=== PATIENT | male | born 1950 | race Two or more races ===

== ENCOUNTER 2021-04-02 10:34 | Emergency (ER) | payer SELFPAY ==
[2021-04-02 10:42] VITALS: BMI 24.0
[2021-04-02 13:01] LABS: BASO % 0.7 % (0-2.0); EOS % 2.6 % (0-4.5); HEMATOCRIT 37.2 % (35.4-49); HEMOGLOBIN 12.9 GM/dL (11.7-16.9); MCH 32.1 pg (25.7-33.7); MCHC 34.7 g/dl (32.0-35.9); MEAN CELL VOLUME 92.6 fl (80-96); MEAN PLT VOLUME 8.1 fl (7.5-11.1); MONO % 7.1 % (3.8-10.2); NEUT % 56.6 % (42.8-82.8); PLATELET COUNT 226 10^3/uL (134-434); RBC 4.01 M/mm3 (4.00-5.60); RDW 13.3 % (11.9-15.9); WHITE BLOOD COUNT 8.3 K/mm3 (4.0-10.0)
[2021-04-02 13:20] LABS: CHLORIDE 105 mmol/L (98-107); SODIUM 140 mmol/L (136-145)
[2021-04-02 13:22] LABS: ALBUMIN 3.6 g/dl (3.4-5.0); ANION GAP 10 MMOL/L (8-16); BLOOD UREA NITROGEN 14.2 mg/dL (7-18); CALCIUM 8.4 mg/dL (8.5-10.1); CO2 24 mmol/L (21-32); GLUCOSE,RANDOM 371 mg/dL (74-106)
[2021-04-02 13:25] LABS: SGOT/AST 21 U/L (15-37); SGPT/ALT 23 U/L (13-61)
[2021-04-02 13:26] LABS: CREATININE 1.5 mg/dL (0.55-1.3)
[2021-04-02 13:27] LABS: BILIRUBIN,TOTAL 0.4 mg/dL (0.2-1); TOT PROT 7.3 g/dl (6.4-8.2)
[2021-04-02 13:28] LABS: ALK PHOS 78 U/L (45-117)
[2021-04-02] MEDS ORDERED: ACETAMINOPHEN 325 MG TABLET (FP) PO ONE (14:00)
[2021-04-02] MEDS ORDERED: ACETAMINOPHEN 325 MG TABLET (FP) ONE (14:26)
[2021-04-02] MEDS ORDERED: SODIUM CHLORIDE 1,000 ML IV STA (15:09)
[2021-04-02] MEDS ORDERED: INSULIN REGULAR HUMAN 100 UNITS/ML *VIAL SQ ONE (15:09)
[2021-04-02 15:40] VITALS: BP 150/76; PULSE 67; TEMP 98.3
== END 2021-04-02 16:30 | disposition home or self-care (01) ==
LOC: JER 10:34
PROC: 3E033GC Introduction of Other Therapeutic Substance into Peripheral Vein, Percutaneous Approach (ICD-10-PCS; principal; 2021-04-02)
PROC: 3E023GC Introduction of Other Therapeutic Substance into Muscle, Percutaneous Approach (ICD-10-PCS; principal; 2021-04-02)
DX: R51.9 Headache, unspecified (principal); E11.65 Type 2 diabetes mellitus with hyperglycemia
CPT/HCPCS: 36415; 70450-TC; 71045-TC-FY; 80053; 82550; 84484; 85025; 93005; 93010; 99285-25

== ENCOUNTER 2022-05-27 22:51 | Inpatient (IN) | payer SELFPAY ==
[2022-05-27] MEDS ORDERED: ASPIRIN 81 MG CHEWABLE TABLETS PO ONE (23:40)
[2022-05-27 23:58] LABS: BASO % 0.5 % (0-2.0); EOS % 1.2 % (0-4.5); HEMATOCRIT 42.8 % (35.4-49); HEMOGLOBIN 14.7 GM/dL (11.7-16.9); LYMPH % 23.3 % (8-40); MCH 30.6 pg (25.7-33.7); MCHC 34.3 g/dl (32.0-35.9); MEAN CELL VOLUME 89.1 fl (80-96); MEAN PLT VOLUME 8.1 fl (7.5-11.1); MONO % 7.1 % (3.8-10.2); NEUT % 67.9 % (42.8-82.8); PLATELET COUNT 234 10^3/uL (134-434); RDW 12.8 % (11.9-15.9); WHITE BLOOD COUNT 10.9 K/mm3 (4.0-10.0)
[2022-05-28 00:05] LABS: INR 1.14 (0.83-1.09); PROTHROMBIN TIME (PATIENT) 13.1 SEC (9.7-13.0)
[2022-05-28] MEDS ORDERED: ASPIRIN 81 MG CHEWABLE TABLETS ONE (00:05)
[2022-05-28 00:08] LABS: ACTIVATED PTT 32.1 SECONDS (25.2-36.5)
[2022-05-28] MEDS ORDERED: ASPIRIN 300 MG SUPP.RECT PR ONE (00:08)
[2022-05-28] MEDS ORDERED: ASPIRIN 300 MG SUPP.RECT RC ONE (00:11)
[2022-05-28 00:17] LABS: CALCIUM 9.8 mg/dL (8.5-10.1); CO2 24 mmol/L (21-32); GLUCOSE,RANDOM 304 mg/dL (74-106)
[2022-05-28 00:20] LABS: ALBUMIN 3.9 g/dl (3.4-5.0)
[2022-05-28 00:22] LABS: ANION GAP 10 MMOL/L (8-16); CHLORIDE 104 mmol/L (98-107); SODIUM 138 mmol/L (136-145)
[2022-05-28 00:23] LABS: CREATININE 1.4 mg/dL (0.55-1.3)
[2022-05-28 00:24] LABS: BILIRUBIN,TOTAL 0.4 mg/dL (0.2-1); CHOLESTEROL 141 mg/dL (50-200); LDL CHOLESTEROL (ONLY SJRH) 76 mg/dL (5-100)
[2022-05-28 00:25] LABS: ALK PHOS 116 U/L (45-117); SGOT/AST 17 U/L (15-37); SGPT/ALT 29 U/L (13-61); TOT PROT 7.5 g/dl (6.4-8.2); TRIGLYCERIDES 162 mg/dL (0-150)
[2022-05-28 00:26] LABS: HDL CHOLESTEROL 35 mg/dL (40-60)
[2022-05-28 00:28] LABS: BLOOD UREA NITROGEN 24.6 mg/dL (7-18)
[2022-05-28] MEDS ORDERED: SODIUM CHLORIDE 1,000 ML IV SCH (12:30)
[2022-05-28] MEDS: HEPARIN NA (PORCINE) 5,000 UNITS/ML 1ML VIAL SQ SCH ×2 (16:34→22:20)
[2022-05-28 18:03] VITALS: BMI 23.9
[2022-05-28] MEDS: INSULIN SLIDING SCALE (NOVOLOG) 1 VIAL SQ SCH ×2 (18:35→22:22)
[2022-05-28] MEDS ORDERED: ROSUVASTATIN CA 20 MG TABLET PO SCH (22:00)
[2022-05-28] MEDS ORDERED: CITICOLINE 500 MG PO SCH (22:00)
[2022-05-29] MEDS: HEPARIN NA (PORCINE) 5,000 UNITS/ML 1ML VIAL SQ SCH ×3 (06:11→22:42)
[2022-05-29] MEDS: INSULIN SLIDING SCALE (NOVOLOG) 1 VIAL SQ SCH ×4 (06:13→22:46)
[2022-05-29 07:57] LABS: HEMATOCRIT 43.3 % (35.4-49); HEMOGLOBIN 14.7 GM/dL (11.7-16.9); MCH 30.8 pg (25.7-33.7); MCHC 33.9 g/dl (32.0-35.9); MEAN CELL VOLUME 90.9 fl (80-96); MEAN PLT VOLUME 8.4 fl (7.5-11.1); PLATELET COUNT 238 10^3/uL (134-434); RBC 4.76 M/mm3 (4.00-5.60); RDW 13.1 % (11.9-15.9)
[2022-05-29 08:29] LABS: CALCIUM 9.2 mg/dL (8.5-10.1)
[2022-05-29 08:31] LABS: ALBUMIN 3.7 g/dl (3.4-5.0); BLOOD UREA NITROGEN 25.2 mg/dL (7-18); MAGNESIUM 1.8 mg/dL (1.8-2.4)
[2022-05-29 08:34] LABS: CREATININE 1.2 mg/dL (0.55-1.3); PHOSPHOROUS 4.3 mg/dL (2.5-4.9)
[2022-05-29 08:35] LABS: BILIRUBIN,TOTAL 0.5 mg/dL (0.2-1); TOT PROT 6.9 g/dl (6.4-8.2)
[2022-05-29] MEDS ORDERED: ASPIRIN 81 MG CHEWABLE TABLETS PO SCH (10:00)
[2022-05-29] MEDS: CLOPIDOGREL BISULFATE 75 MG TABLET (FP) PO SCH (11:19)
[2022-05-29] MEDS ORDERED: metoPROLOL SUCCINATE 25 MG TAB.SR.24H (FP) PO SCH (14:45)
[2022-05-29] MEDS ORDERED: METOPROLOL TARTRATE 5 MG/5 ML VIAL IVPUSH PRN (15:02)
[2022-05-29] MEDS: ASPIRIN 300 MG SUPP.RECT RC SCH (16:21)
[2022-05-29] MEDS: ROSUVASTATIN CA 20 MG TABLET PO SCH (22:45)
[2022-05-30] MEDS: INSULIN SLIDING SCALE (NOVOLOG) 1 VIAL SQ SCH ×5 (06:36→23:29)
[2022-05-30] MEDS: HEPARIN NA (PORCINE) 5,000 UNITS/ML 1ML VIAL SQ SCH ×3 (06:36→21:43)
[2022-05-30 08:35] LABS: BASO % 0.6 % (0-2.0); EOS % 1.7 % (0-4.5); HEMATOCRIT 44.5 % (35.4-49); HEMOGLOBIN 14.8 GM/dL (11.7-16.9); LYMPH % 34.3 % (8-40); MCH 30.3 pg (25.7-33.7); MCHC 33.3 g/dl (32.0-35.9); MEAN CELL VOLUME 91.2 fl (80-96); MEAN PLT VOLUME 8.5 fl (7.5-11.1); MONO % 8.4 % (3.8-10.2); PLATELET COUNT 252 10^3/uL (134-434); RBC 4.88 M/mm3 (4.00-5.60); RDW 12.9 % (11.9-15.9); WHITE BLOOD COUNT 10.1 K/mm3 (4.0-10.0)
[2022-05-30 08:43] LABS: BLOOD UREA NITROGEN 28.7 mg/dL (7-18)
[2022-05-30 08:45] LABS: CALCIUM 9.4 mg/dL (8.5-10.1)
[2022-05-30 08:46] LABS: ALBUMIN 3.6 g/dl (3.4-5.0); CREATININE 1.2 mg/dL (0.55-1.3)
[2022-05-30 08:47] LABS: BILIRUBIN,TOTAL 0.5 mg/dL (0.2-1)
[2022-05-30] MEDS: CLOPIDOGREL BISULFATE 75 MG TABLET (FP) PO SCH (09:22)
[2022-05-30] MEDS: ASPIRIN 300 MG SUPP.RECT RC SCH (09:22)
[2022-05-30] MEDS: ROSUVASTATIN CA 20 MG TABLET PO SCH (21:42)
[2022-05-31] MEDS: HEPARIN NA (PORCINE) 5,000 UNITS/ML 1ML VIAL SQ SCH ×3 (06:44→21:26)
[2022-05-31] MEDS: INSULIN SLIDING SCALE (NOVOLOG) 1 VIAL SQ SCH ×4 (06:47→21:27)
[2022-05-31 07:19] LABS: BASO % 0.5 % (0-2.0); EOS % 1.3 % (0-4.5); HEMATOCRIT 45.3 % (35.4-49); LYMPH % 30.8 % (8-40); MCH 30.1 pg (25.7-33.7); MEAN CELL VOLUME 91.2 fl (80-96); MEAN PLT VOLUME 8.6 fl (7.5-11.1); MONO % 8.5 % (3.8-10.2); NEUT % 58.9 % (42.8-82.8); PLATELET COUNT 249 10^3/uL (134-434); RBC 4.97 M/mm3 (4.00-5.60); RDW 13.3 % (11.9-15.9); WHITE BLOOD COUNT 10.8 K/mm3 (4.0-10.0)
[2022-05-31 07:43] LABS: ALBUMIN 3.7 g/dl (3.4-5.0); BLOOD UREA NITROGEN 35.6 mg/dL (7-18); CALCIUM 9.7 mg/dL (8.5-10.1)
[2022-05-31 07:47] LABS: BILIRUBIN,TOTAL 0.6 mg/dL (0.2-1); CREATININE 1.3 mg/dL (0.55-1.3)
[2022-05-31 07:48] LABS: TOT PROT 7.1 g/dl (6.4-8.2)
[2022-05-31] MEDS: CLOPIDOGREL BISULFATE 75 MG TABLET (FP) PO SCH (09:48)
[2022-05-31] MEDS: ASPIRIN 300 MG SUPP.RECT RC SCH (13:01)
[2022-05-31] MEDS: ROSUVASTATIN CA 20 MG TABLET PO SCH (21:26)
[2022-06-01] MEDS: INSULIN SLIDING SCALE (NOVOLOG) 1 VIAL SQ SCH ×4 (06:07→21:10)
[2022-06-01] MEDS: HEPARIN NA (PORCINE) 5,000 UNITS/ML 1ML VIAL SQ SCH ×3 (06:07→21:07)
[2022-06-01 07:50] LABS: BASO % 0.7 % (0-2.0); EOS % 2.3 % (0-4.5); HEMATOCRIT 42.5 % (35.4-49); HEMOGLOBIN 14.3 GM/dL (11.7-16.9); LYMPH % 32.4 % (8-40); MCH 30.7 pg (25.7-33.7); MCHC 33.7 g/dl (32.0-35.9); MEAN CELL VOLUME 91.1 fl (80-96); MEAN PLT VOLUME 8.2 fl (7.5-11.1); MONO % 8.2 % (3.8-10.2); NEUT % 56.4 % (42.8-82.8); PLATELET COUNT 247 10^3/uL (134-434); RBC 4.67 M/mm3 (4.00-5.60); RDW 13.2 % (11.9-15.9); WHITE BLOOD COUNT 9.7 K/mm3 (4.0-10.0)
[2022-06-01 07:54] LABS: ALBUMIN 3.7 g/dl (3.4-5.0); CALCIUM 9.7 mg/dL (8.5-10.1)
[2022-06-01 07:55] LABS: BLOOD UREA NITROGEN 27.3 mg/dL (7-18)
[2022-06-01 07:58] LABS: CREATININE 1.2 mg/dL (0.55-1.3)
[2022-06-01 08:00] LABS: BILIRUBIN,TOTAL 0.5 mg/dL (0.2-1)
[2022-06-01] MEDS: ASPIRIN 300 MG SUPP.RECT RC SCH (10:21)
[2022-06-01] MEDS: CLOPIDOGREL BISULFATE 75 MG TABLET (FP) PO SCH (10:21)
[2022-06-01 20:08] LABS: EPI CELLS 11 /uL (0-25.1); HYALINE CASTS 2 /uL (0-3.1); PH,URINE 5.5 (5.0-8.0); URINE APPEARANCE CLEAR; URINE BACTERIA >9,000 /uL (0-1359); URINE BILIRUBIN NEGATIVE (NEGATIVE); URINE COLOR YELLOW; URINE GLUCOSE (UA) TRACE (NEGATIVE); URINE KETONE TRACE (NEGATIVE); URINE LEUK ESTERASE NEGATIVE (NEGATIVE); URINE NITRITE NEGATIVE (NEGATIVE); URINE PROTEIN 2+ (NEGATIVE); URINE RBC 4 /uL (0-23.9); URINE UROBILINOGEN 0.2 mg/dL (0.2-1.0); URINE WBC 17 /uL (0-25.8)
[2022-06-01] MEDS: ROSUVASTATIN CA 20 MG TABLET PO SCH (21:07)
[2022-06-01 23:49] VITALS: RESP 18
[2022-06-02] MEDS: HEPARIN NA (PORCINE) 5,000 UNITS/ML 1ML VIAL SQ SCH ×2 (06:11→13:19)
[2022-06-02] MEDS: INSULIN SLIDING SCALE (NOVOLOG) 1 VIAL SQ SCH ×3 (06:16→16:42)
[2022-06-02 07:32] LABS: HEMATOCRIT 44.4 % (35.4-49); HEMOGLOBIN 15.1 GM/dL (11.7-16.9); MEAN CELL VOLUME 91.2 fl (80-96); MEAN PLT VOLUME 8.7 fl (7.5-11.1); PLATELET COUNT 239 10^3/uL (134-434); RBC 4.87 M/mm3 (4.00-5.60); RDW 13.2 % (11.9-15.9); WHITE BLOOD COUNT 9.5 K/mm3 (4.0-10.0)
[2022-06-02 07:54] LABS: BLOOD UREA NITROGEN 23.9 mg/dL (7-18)
[2022-06-02 07:55] LABS: ALBUMIN 3.8 g/dl (3.4-5.0); MAGNESIUM 2.2 mg/dL (1.8-2.4)
[2022-06-02 07:57] LABS: CREATININE 1.1 mg/dL (0.55-1.3)
[2022-06-02 07:58] LABS: BILIRUBIN,TOTAL 0.4 mg/dL (0.2-1); TOT PROT 7.3 g/dl (6.4-8.2)
[2022-06-02] MEDS: CLOPIDOGREL BISULFATE 75 MG TABLET (FP) PO SCH (09:47)
[2022-06-02] MEDS: ASPIRIN 300 MG SUPP.RECT RC SCH (09:47)
[2022-06-02] MEDS ORDERED: LOSARTAN POTASSIUM 25 MG TABLET PO ONE (11:19)
[2022-06-02 15:00] VITALS: BP 140/72; PULSE 94; TEMP 98
== END 2022-06-02 19:34 | disposition home or self-care (01) | DRG 45 ==
LOC: JER 22:51 → INTOOBSV 23:39 → JERBED 23:39 → UNDOADMOB 23:39 → JERBED 05-28 14:24 → J4W 05-28 14:24 → OBSVTOIN 05-29 09:31
PROVIDERS: ADMIT Internal Medicine; ATTEND Internal Medicine
DX: I63.9 Cerebral infarction, unspecified (principal); J98.11 Atelectasis; G81.94 Hemiplegia, unspecified affecting left nondominant side; C95.91 Leukemia, unspecified, in remission; I24.8 Other forms of acute ischemic heart disease; N17.9 Acute kidney failure, unspecified; R53.81 Other malaise; I65.29 Occlusion and stenosis of unspecified carotid artery; E11.9 Type 2 diabetes mellitus without complications; E78.5 Hyperlipidemia, unspecified; E11.22 Type 2 diabetes mellitus with diabetic chronic kidney disease; I12.9 Hypertensive chronic kidney disease with stage 1 through stage 4 chronic kidney disease, or unspecified chronic kidney disease; N18.9 Chronic kidney disease, unspecified; R80.9 Proteinuria, unspecified
CPT/HCPCS: 36415; 70450-TC; 70496-TC; 70498-TC; 70551-TC; 71045-TC-FY; 74230-TC-FY; 76775-TC; 80053; 80061; 81003; 82962; 83036; 83735; 84100; 84439; 84443; 84484; 85025; 85027; 85610; 85730; 86780; 86850; 86900; 86901; 92611-GN; 93005; 93010; 93306-TC; 93880-TC; 97116-GP; 97162-GP; 99285-25; C9803-CS; G0378; J1644; Q9967; U0003; U0005

== ENCOUNTER 2022-06-17 06:58 | Inpatient (IN) | payer SELFPAY ==
[2022-06-17 10:33] LABS: VENOUS BASE EXCESS -0.1 mmol/L (-2-2); VENOUS O2 SATURATION 45.8 % (70-80); VENOUS PCO2 52.4 mmHg (38-52); VENOUS PH 7.328 (7.310-7.410)
[2022-06-17 10:36] LABS: BASO % 0.9 % (0-2.0); EOS % 1.8 % (0-4.5); HEMATOCRIT 43.1 % (35.4-49); HEMOGLOBIN 14.4 GM/dL (11.7-16.9); LYMPH % 32.3 % (8-40); MCH 30.4 pg (25.7-33.7); MCHC 33.5 g/dl (32.0-35.9); MEAN CELL VOLUME 90.9 fl (80-96); MEAN PLT VOLUME 7.9 fl (7.5-11.1); MONO % 7.2 % (3.8-10.2); NEUT % 57.8 % (42.8-82.8); PLATELET COUNT 281 10^3/uL (134-434); RBC 4.74 M/mm3 (4.00-5.60); RDW 12.9 % (11.9-15.9); WHITE BLOOD COUNT 9.1 K/mm3 (4.0-10.0)
[2022-06-17 11:06] LABS: CHLORIDE 108 mmol/L (98-107); SODIUM 141 mmol/L (136-145)
[2022-06-17 11:08] LABS: ALBUMIN 3.9 g/dl (3.4-5.0)
[2022-06-17 11:09] LABS: ANION GAP 6 MMOL/L (8-16); BLOOD UREA NITROGEN 16.4 mg/dL (7-18); CO2 27 mmol/L (21-32); GLUCOSE,RANDOM 122 mg/dL (74-106)
[2022-06-17 11:11] LABS: CREATININE 1.1 mg/dL (0.55-1.3)
[2022-06-17 11:12] LABS: SGOT/AST 28 U/L (15-37); SGPT/ALT 40 U/L (13-61)
[2022-06-17 11:13] LABS: BILIRUBIN,TOTAL 0.3 mg/dL (0.2-1); TOT PROT 7.5 g/dl (6.4-8.2)
[2022-06-17 11:14] LABS: ALK PHOS 94 U/L (45-117)
[2022-06-17] MEDS ORDERED: ASPIRIN 81 MG CHEWABLE TABLETS PO ONE (17:49)
[2022-06-17] MEDS ORDERED: ATORVASTATIN CA 80 MG TABLET (FP) PO ONE (18:17)
[2022-06-17] MEDS ORDERED: ALBUTEROL SO4 HFA INHALER IH PRN (18:36)
[2022-06-17] MEDS ORDERED: ACETAMINOPHEN 325 MG TABLET (FP) PO ONE (19:02)
[2022-06-17] MEDS ORDERED: ASPIRIN 81 MG CHEWABLE TABLETS ONE (19:59)
[2022-06-17] MEDS ORDERED: ACETAMINOPHEN 325 MG TABLET (FP) ONE (19:59)
[2022-06-17] MEDS ORDERED: ATORVASTATIN CA 80 MG TABLET (FP) ONE (19:59)
[2022-06-18 07:19] LABS: BASO % 0.7 % (0-2.0); EOS % 1.9 % (0-4.5); HEMOGLOBIN 14.4 GM/dL (11.7-16.9); MCH 30.9 pg (25.7-33.7); MCHC 34.2 g/dl (32.0-35.9); MEAN CELL VOLUME 90.3 fl (80-96); MEAN PLT VOLUME 7.8 fl (7.5-11.1); MONO % 8.3 % (3.8-10.2); NEUT % 50.1 % (42.8-82.8); PLATELET COUNT 262 10^3/uL (134-434); RBC 4.65 M/mm3 (4.00-5.60); RDW 13.2 % (11.9-15.9)
[2022-06-18 07:24] LABS: INR 1.2 (0.83-1.09); PROTHROMBIN TIME (PATIENT) 13.8 SEC (9.7-13.0)
[2022-06-18 07:27] LABS: ACTIVATED PTT 33.8 SECONDS (25.2-36.5)
[2022-06-18 07:53] LABS: BLOOD UREA NITROGEN 22.6 mg/dL (7-18); CALCIUM 9.5 mg/dL (8.5-10.1)
[2022-06-18 07:54] LABS: ALBUMIN 3.7 g/dl (3.4-5.0); MAGNESIUM 2.2 mg/dL (1.8-2.4)
[2022-06-18 07:57] LABS: CREATININE 1.1 mg/dL (0.55-1.3)
[2022-06-18 07:58] LABS: BILIRUBIN,TOTAL 0.3 mg/dL (0.2-1); TOT PROT 7.2 g/dl (6.4-8.2)
[2022-06-18] MEDS: INSULIN SLIDING SCALE (NOVOLOG) 1 VIAL SQ SCH ×3 (08:00→16:48)
[2022-06-18] MEDS ORDERED: LOSARTAN POTASSIUM 50 MG TABLET ONE (10:09)
[2022-06-18] MEDS ORDERED: ASPIRIN 81 MG CHEWABLE TABLETS ONE (10:10)
[2022-06-18] MEDS ORDERED: CLOPIDOGREL BISULFATE 75 MG TABLET (FP) ONE (10:10)
[2022-06-18] MEDS ORDERED: ENOXAPARIN NA (PORCINE) 40 MG/0.4 ML DISP.SYRIN SQ ONE (10:10)
[2022-06-18] MEDS: ASPIRIN 81 MG CHEWABLE TABLETS PO SCH (10:20)
[2022-06-18] MEDS: CLOPIDOGREL BISULFATE 75 MG TABLET (FP) PO SCH (10:20)
[2022-06-18] MEDS: LOSARTAN POTASSIUM 50 MG TABLET PO SCH (10:20)
[2022-06-18] MEDS: ENOXAPARIN NA (PORCINE) 40 MG/0.4 ML DISP.SYRIN SQ SCH (10:20)
[2022-06-18 15:52] VITALS: BMI 25.7
[2022-06-18] MEDS: ROSUVASTATIN CA 20 MG TABLET PO SCH (21:50)
[2022-06-18] MEDS ORDERED: CITICOLINE 500 MG PO SCH (22:00)
[2022-06-18] MEDS ORDERED: ACETAMINOPHEN 1000 MG/100 ML BAG IVPB ONE (22:48)
[2022-06-19] MEDS: INSULIN SLIDING SCALE (NOVOLOG) 1 VIAL SQ SCH ×3 (06:50→17:05)
[2022-06-19 08:28] LABS: BASO % 0.7 % (0-2.0); HEMATOCRIT 40.4 % (35.4-49); HEMOGLOBIN 13.8 GM/dL (11.7-16.9); MCHC 34.3 g/dl (32.0-35.9); MEAN CELL VOLUME 90.5 fl (80-96); MEAN PLT VOLUME 7.9 fl (7.5-11.1); MONO % 9.7 % (3.8-10.2); NEUT % 48.6 % (42.8-82.8); PLATELET COUNT 241 10^3/uL (134-434); RBC 4.46 M/mm3 (4.00-5.60); RDW 12.5 % (11.9-15.9); WHITE BLOOD COUNT 7.5 K/mm3 (4.0-10.0)
[2022-06-19 08:41] LABS: ALBUMIN 3.6 g/dl (3.4-5.0); BLOOD UREA NITROGEN 28.9 mg/dL (7-18); CALCIUM 9.4 mg/dL (8.5-10.1); MAGNESIUM 2.1 mg/dL (1.8-2.4)
[2022-06-19 08:45] LABS: CREATININE 1.2 mg/dL (0.55-1.3)
[2022-06-19 08:46] LABS: BILIRUBIN,TOTAL 0.5 mg/dL (0.2-1); PHOSPHOROUS 3.4 mg/dL (2.5-4.9); TOT PROT 6.9 g/dl (6.4-8.2)
[2022-06-19] MEDS ORDERED: REGADENOSON 0.4 MG/5 ML PRE-FILLED SYRINGE IVPUSH ONE ×2 (09:30→10:27)
[2022-06-19] MEDS ORDERED: AMINOPHYLLINE 250 MG/10 ML VIAL IVPUSH ONE (11:40)
[2022-06-19] MEDS ORDERED: AMINOPHYLLINE 250 MG/10 ML VIAL ONE (11:50)
[2022-06-19] MEDS: CLOPIDOGREL BISULFATE 75 MG TABLET (FP) PO SCH (12:09)
[2022-06-19] MEDS: LOSARTAN POTASSIUM 50 MG TABLET PO SCH (12:09)
[2022-06-19] MEDS: ASPIRIN 81 MG CHEWABLE TABLETS PO SCH (12:09)
[2022-06-19] MEDS: ENOXAPARIN NA (PORCINE) 40 MG/0.4 ML DISP.SYRIN SQ SCH (12:10)
[2022-06-19] MEDS: ROSUVASTATIN CA 20 MG TABLET PO SCH (21:50)
[2022-06-20] MEDS: INSULIN SLIDING SCALE (NOVOLOG) 1 VIAL SQ SCH ×3 (06:51→16:57)
[2022-06-20 07:22] LABS: BASO % 0.2 % (0-2.0); EOS % 1.3 % (0-4.5); HEMATOCRIT 27.4 % (35.4-49); HEMOGLOBIN 8.9 GM/dL (11.7-16.9); LYMPH % 26.2 % (8-40); MCH 30.1 pg (25.7-33.7); MCHC 32.6 g/dl (32.0-35.9); MEAN CELL VOLUME 92.1 fl (80-96); MEAN PLT VOLUME 9.4 fl (7.5-11.1); MONO % 7.3 % (3.8-10.2); PLATELET COUNT 223 10^3/uL (134-434); RBC 2.97 M/mm3 (4.00-5.60); RDW 18.2 % (11.9-15.9)
[2022-06-20 07:43] LABS: ALBUMIN 3.7 g/dl (3.4-5.0); BLOOD UREA NITROGEN 27.9 mg/dL (7-18); CALCIUM 9.8 mg/dL (8.5-10.1)
[2022-06-20 07:46] LABS: CREATININE 1.2 mg/dL (0.55-1.3); PHOSPHOROUS 3.4 mg/dL (2.5-4.9)
[2022-06-20 07:48] LABS: BILIRUBIN,TOTAL 0.3 mg/dL (0.2-1)
[2022-06-20] MEDS: CLOPIDOGREL BISULFATE 75 MG TABLET (FP) PO SCH (09:52)
[2022-06-20] MEDS: LOSARTAN POTASSIUM 50 MG TABLET PO SCH (09:52)
[2022-06-20] MEDS: ASPIRIN 81 MG CHEWABLE TABLETS PO SCH (09:52)
[2022-06-20] MEDS: ENOXAPARIN NA (PORCINE) 40 MG/0.4 ML DISP.SYRIN SQ SCH (09:53)
[2022-06-20 16:59] LABS: BASO % 0.6 % (0-2.0); EOS % 2.1 % (0-4.5); HEMATOCRIT 42.6 % (35.4-49); HEMOGLOBIN 14.4 GM/dL (11.7-16.9); LYMPH % 31.7 % (8-40); MCHC 33.7 g/dl (32.0-35.9); MEAN CELL VOLUME 91.8 fl (80-96); MONO % 8.9 % (3.8-10.2); NEUT % 56.7 % (42.8-82.8); PLATELET COUNT 242 10^3/uL (134-434); RBC 4.63 M/mm3 (4.00-5.60); RDW 13.3 % (11.9-15.9); WHITE BLOOD COUNT 9.7 K/mm3 (4.0-10.0)
[2022-06-20] MEDS: ROSUVASTATIN CA 20 MG TABLET PO SCH (21:32)
[2022-06-21] MEDS: INSULIN SLIDING SCALE (NOVOLOG) 1 VIAL SQ SCH ×3 (06:05→17:19)
[2022-06-21 08:27] LABS: BASO % 0.8 % (0-2.0); EOS % 3.4 % (0-4.5); HEMATOCRIT 39.7 % (35.4-49); HEMOGLOBIN 13.5 GM/dL (11.7-16.9); MEAN CELL VOLUME 90.9 fl (80-96); MEAN PLT VOLUME 8.1 fl (7.5-11.1); MONO % 10.5 % (3.8-10.2); NEUT % 53.3 % (42.8-82.8); PLATELET COUNT 229 10^3/uL (134-434); RBC 4.36 M/mm3 (4.00-5.60); WHITE BLOOD COUNT 8.8 K/mm3 (4.0-10.0)
[2022-06-21 08:44] LABS: CALCIUM 9.4 mg/dL (8.5-10.1)
[2022-06-21 08:45] LABS: ALBUMIN 3.7 g/dl (3.4-5.0); MAGNESIUM 1.9 mg/dL (1.8-2.4)
[2022-06-21 08:47] LABS: PHOSPHOROUS 3.4 mg/dL (2.5-4.9)
[2022-06-21 08:48] LABS: CREATININE 1.2 mg/dL (0.55-1.3)
[2022-06-21 08:49] LABS: BILIRUBIN,TOTAL 0.3 mg/dL (0.2-1); TOT PROT 6.9 g/dl (6.4-8.2)
[2022-06-21] MEDS ORDERED: ENOXAPARIN NA (PORCINE) 40 MG/0.4 ML DISP.SYRIN SQ ONE (10:00)
[2022-06-21] MEDS: ASPIRIN 81 MG CHEWABLE TABLETS PO SCH (10:03)
[2022-06-21] MEDS: CLOPIDOGREL BISULFATE 75 MG TABLET (FP) PO SCH (10:03)
[2022-06-21] MEDS: LOSARTAN POTASSIUM 50 MG TABLET PO SCH (10:03)
[2022-06-21] MEDS: metoPROLOL SUCCINATE 25 MG TAB.SR.24H (FP) PO SCH (10:04)
[2022-06-21] MEDS: ROSUVASTATIN CA 20 MG TABLET PO SCH (21:35)
[2022-06-22] MEDS: INSULIN SLIDING SCALE (NOVOLOG) 1 VIAL SQ SCH (07:30)
[2022-06-22 07:56] LABS: BASO % 0.6 % (0-2.0); EOS % 3.2 % (0-4.5); HEMATOCRIT 40.6 % (35.4-49); HEMOGLOBIN 13.5 GM/dL (11.7-16.9); LYMPH % 35.2 % (8-40); MCH 30.2 pg (25.7-33.7); MCHC 33.3 g/dl (32.0-35.9); MEAN CELL VOLUME 90.5 fl (80-96); MEAN PLT VOLUME 8.3 fl (7.5-11.1); PLATELET COUNT 260 10^3/uL (134-434); RBC 4.48 M/mm3 (4.00-5.60); RDW 12.9 % (11.9-15.9)
[2022-06-22 08:09] LABS: ALBUMIN 3.6 g/dl (3.4-5.0); BLOOD UREA NITROGEN 24.8 mg/dL (7-18); CALCIUM 9.3 mg/dL (8.5-10.1); MAGNESIUM 1.9 mg/dL (1.8-2.4)
[2022-06-22 08:12] LABS: CREATININE 1.1 mg/dL (0.55-1.3)
[2022-06-22 08:15] LABS: BILIRUBIN,TOTAL 0.4 mg/dL (0.2-1)
[2022-06-22 09:36] VITALS: BP 125/69; PULSE 96; RESP 16; TEMP 97.6
[2022-06-22] MEDS: metoPROLOL SUCCINATE 25 MG TAB.SR.24H (FP) PO SCH (09:37)
[2022-06-22] MEDS: CLOPIDOGREL BISULFATE 75 MG TABLET (FP) PO SCH (09:37)
[2022-06-22] MEDS: ASPIRIN 81 MG CHEWABLE TABLETS PO SCH (09:38)
[2022-06-22] MEDS: LOSARTAN POTASSIUM 50 MG TABLET PO SCH (09:38)
== END 2022-06-22 12:30 | disposition short-term general hospital (02) | DRG 198 ==
LOC: JER 06:58 → JERBED 17:50 → J4W 06-18 15:29 → OBSVTOIN 06-19 13:59
PROVIDERS: ADMIT Internal Medicine; ATTEND Internal Medicine
DX: I24.8 Other forms of acute ischemic heart disease (principal); I10 Essential (primary) hypertension; Z86.73 Personal history of transient ischemic attack (TIA), and cerebral infarction without residual deficits; E11.9 Type 2 diabetes mellitus without complications; Z79.4 Long term (current) use of insulin; Z85.6 Personal history of leukemia; R77.8 Other specified abnormalities of plasma proteins; I25.119 Atherosclerotic heart disease of native coronary artery with unspecified angina pectoris
CPT/HCPCS: 0241U-QW; 36415; 70450-TC; 71045-TC-FY; 71275-TC; 78452-TC; 80053; 82010; 82803; 82962; 83735; 83880; 84100; 84443; 84484; 85025; 85610; 85730; 87086; 87186; 93005; 93010; 93017; 97116-GP; 97161-GP; 99285-25; A9502; G0378; J2785